=== PATIENT | female | born 1965 | race Caucasian/White ===

== ENCOUNTER → 2017-04-18 | Outpatient (CLI) | payer MEDICAID ==
[~2017-04-18] MED LIST: ACCUNEB SOL3 ML/NE1 IN; ADVAIR HFA1 AE1 IH; CELEBREX 200MG200 MG PO; CITRACAL CALCIU1 TAB PO; FLEXERIL10 MG PO; GLIPIZIDE10 MG PO; JANUMET XR 10001 TE1 PO; JENTADUETO1 TAB PO; LEXAPRO 20 MG T20 MG PO; LISINOPRIL10 MG PO; LOVASTATIN20 MG PO; LOVAZA1 GM PO; LYRICA150 M1 PO; LYRICA50 MG PO; MELOXICAM15 MG PO; METFORMIN1000 MG PO; MULTI VITAMINS1 TA1 PO; NEXIUM40 MG PO; OMNICEF 300 MG300 MG PO; ONGLYZA5 MG PO; OXYCODONE HCL10 M1 PO; PERCOCET 325 MG1 TA3 PO; PERCOCET1 TA1 PO; PREDNISONE 20MG20 MG PO; PROTONIX 40MG T40 MG PO; SPIRIVA HA1 PUFF/INH IH; SYMBICORT1 AER IH; VALIUM 5MG TABLE5 MG PO; VENTOLIN H0.09 MG/AC IH; XYZAL5 MG PO; ZIAC 10 MG-6.251 TAB PO
[2017-04-18 13:58] LABS: BUN 15 mg/dL (7-18)
[2017-04-18 14:03] LABS: GFR (ESTIMATED) 65 ML/MIN (59-)
== END ==
LOC: LAB 10:37
PROVIDERS: Nurse Practitioner Family
DX: E11.42 Type 2 diabetes mellitus with diabetic polyneuropathy (principal)

== ENCOUNTER → 2017-05-22 | Outpatient (CLI) | payer MEDICAID ==
[~2017-05-22] MED LIST changes: +ZYRTEC10 M2 PO
== END ==
LOC: DIETICIAN 10:00
DX: E11.9 Type 2 diabetes mellitus without complications (principal); E66.01 Morbid (severe) obesity due to excess calories; Z71.3 Dietary counseling and surveillance
CPT/HCPCS: G0108

== ENCOUNTER 2017-07-04 08:17 | Day surgery (SDC) | payer MEDICAID ==
[~2017-07-04] VITALS: Ht 162.6 cm; Wt 108.9 kg
[~2017-07-04 08:17] MED LIST changes: +BASAGLAR K100 UNIT/1 SQ
--- NOTE | 2017-07-04 10:16 | Operative Note ---
Surgeon/Diagnoses Surgeon/Central Communications Specialist(s) Date of procedure: 07/04/17 Surgeon: Zurdo Ramirez MD Diagnoses Pre-op diagnosis: Post laminectomy syndrome lumbar spine with degenerative disc disease and lumbar radiculopathy Post-op diagnosis Same Procedure Procedure Procedure: Placement of intrathecal pain pump generator Indications: ROBYN CH is a 52 year-old Female with a history of pain secondary to postlaminectomy syndrome of the lumbar spine with degenerative disc disease and lumbar radiculopathy Findings: Not Applicable Procedure Description: The patient was placed prone on the operating table and her back and flank regions were prepped and draped in sterile fashion once adequate IV sedation was obtained via anesthesia and local anesthesia utilizing 1 percent Xylocaine with epinephrine, a paraspinal incision was made by Dr. Conroy which an intrathecal catheter was passed into the intrathecal space to the area desired by the physician. The catheter was then fixed the paraspinal fascia with the fixation device and 2-0 Prolene suture. LEFT flank incision was made under which is made a pocket for placement of the reservoir. Catheter passed from the paraspinal incision to the pocket incision utilizing a tunneling device. Catheter fixed the generator which was placed in the pocket. CSF was aspirated from the generator noting patency of the system. Pockets were irrigated with antibiotic solution. Subcutaneous tissues closed with interrupted stitches of 2-0 Vicryl. Skin closure and sutures of 4-0 nylon. Skin was then closed with skin glue. EBL (ml): 5 Anesthesia: LMAC Complications: None Disposition Disposition: Upon recovery the patient will be discharged home and will follow-up in 2 weeks for suture removal. Wound care instructions given to the patient prior to discharge. We'll be contacted for redness pain and drainage fever chills or any other concerns. Again the patient tied procedure well at [id number]
--- NOTE | 2017-07-04 10:21 | Operative Note ---
See Addendum Surgeon/Diagnoses Surgeon/Digital Media Director(s) Date of procedure: 07/04/17 Surgeon: Jae Conroy MD Diagnoses Pre-op diagnosis: Post laminectomy syndrome lumbar spine with degenerative disc disease and lumbar radiculopathy symptoms Post-op diagnosis Same Procedure Procedure Procedure: Permanent placement intrathecal catheter and pain pump Indications: ROBYN CH is a 52 year-old Female with a history of low back pain with post laminectomy syndrome of lumbar spine with lumbar radiculopathy symptoms. She has failed all conservative treatment including injections, oral medications, physical therapy and surgery. She is not a candidate for any further surgery. She weaned off her oxycodone and had a successful intrathecal pump trial. She was 90-100 percent better. She was much more functional. She had a successful neuropsychological evaluation. She presents for permanent intrathecal pain pump today. I've explained the risks and benefits and answer all questions. Findings: None Procedure Description: Informed consent was obtained and the risk and benefits of the procedure was explained to the patient. The patient was placed prone on the procedure table. The patient was prepped and draped in sterile fashion. C-arm fluoroscopy was used to view the lumbar spine. The skin and septated tissues adjacent to the L4- L5 and L5-S1 interspace were anesthetized using lidocaine. I made an incision and dissected down to lumbar paraspinous fascia. I placed a 17-gauge spinal needle and advanced into the L5-S1 interspace until clear CSF was obtained. After this intrathecal catheter was inserted and advanced very easily to the L1 vertebral body. The stylette of the catheter was withdrawn. The needle was withdrawn. The catheter was secured to the lumbar paraspinous fascia with an anchoring device and 2-0 Prolene. I prepared the pump with 20 mL of intrathecal Dilaudid 1 mg per mL while Dr. Joe prepared the pump pocket. I tunneled the catheter from the back to the pump pocket and attached the catheter to the pump. The pump was placed in the pump pocket. Both incisions were irrigated with bacitracin. The pump was secured to the fascia with 2-0 Prolene. Both incisions were then closed with 2-0 Vicryl followed by 4-0 nylon. Dermabond was placed. Dressings were placed and the patient was taken to recovery in stable condition. Patient tolerated the procedure well with no complications. EBL (ml): 5 Anesthesia: LMAC Implants: Flowonix intrathecal catheter and pain pump Complications: None Disposition Disposition: We will follow-up with this patient in 2 weeks to make adjustments. The patient and the patient's family were counseled on side effects and the risk of oversedation. If the patient experiences any side effects orsigns or symptoms of oversedation they are to go to the nearest emergency room and call us in the pain clinic. If patient has any problems they are to call us in the pain clinic. at [id number]
[2017-07-04 13:14] VITALS: BP 122/56
== END 2017-07-04 11:55 | disposition home or self-care (01) ==
LOC: SDC 08:17
PROVIDERS: Anesthesiology
PROC: 0JH70VZ Insertion of Infusion Pump into Back Subcutaneous Tissue and Fascia, Open Approach (ICD-10-PCS; 2017-07-04)
PROC: 00HU03Z Insertion of Infusion Device into Spinal Canal, Open Approach (ICD-10-PCS; principal; 2017-07-04 09:45)
DX: M51.16 Intervertebral disc disorders with radiculopathy, lumbar region (principal); M96.1 Postlaminectomy syndrome, not elsewhere classified
CPT/HCPCS: C1755; C1772; J3370